=== PATIENT | female | born 1935 | race Caucasian/White ===

== ENCOUNTER 2022-10-05 13:12 | Emergency (ER) | payer OTHER, MEDICAID ==
[~2022-10-05] VITALS: Ht 172.7 cm; Wt 75.3 kg
[~2022-10-05 13:12] MED LIST: ASPI81CT95 PO; DICL75EC11 PO; MELO-176 PO; METF-1243 PO; TIZA-313 PO; VAS10 PO
[2022-10-05 13:17] VITALS: BP 125/52
[2022-10-05] MEDS ORDERED: KETOROLAC 30 MG/ML VIAL IM ONE (13:35)
[2022-10-05 14:05] LABS: APPEARANCE,URINE CLEAR (CLEAR); BILIRUBIN,URINE NEGATIVE (NEGATIVE); BLOOD, URINE NEGATIVE (NEGATIVE); COLOR,URINE YELLOW (YELLOW); LEUKOCYTE ESTERASE ,URINE TRACE (NEGATIVE); NITRITE, URINE NEGATIVE (NEGATIVE); UGLUCOSE NEGATIVE (NEGATIVE)
--- NOTE | 2022-10-05 14:10 | NUR ---
87/F WALKED IN C/O LOW BACK PAIN ONSET TODAY. DENIES ANY FALL OR INJURY. REPORTS CONSTANT SHARP PAIN THAT GETS WORSE WITH MOVEMENT. REPORTS TAKING TRAMADOL TODAY IN AM WITH NO RELIEF PMH: DM, HTN
[2022-10-05 14:13] LABS: RBC,URINE 0 /HPF (0-5); WBC,URINE 0-5 /HPF (0-5)
[2022-10-05] MEDS ORDERED: NAPR-1704 PO (15:02)
== END 2022-10-05 15:10 | disposition home or self-care (01) ==
LOC: MED 13:12
DX: M54.50 Low back pain, unspecified (principal); I10 Essential (primary) hypertension; E11.9 Type 2 diabetes mellitus without complications; Z79.4 Long term (current) use of insulin; Z79.899 Other long term (current) drug therapy
CPT/HCPCS: 72110; 81001; 81003; 96372; 99284; J1885